=== PATIENT | female | born 1955 | race Caucasian/White ===

== ENCOUNTER 2020-09-18 07:02 | Day surgery (SDC) | payer BC, OTHER ==
[~2020-09-18 07:02] MED LIST: Lactated Ringers 1,000 ML IV SCH; Lidocaine 1% 4 ML ONE; Lidocaine 1%/Sod Bicarbonate in NS 8.4% 1 ML Syringe IDERM PRN; Propofol 200 MG/20 ML SDV ONE; Sodium Chloride 0.9% 10 ML Syringe FLUSH PRN
--- NOTE | 2020-09-18 07:06 | PCM.PREANE ---
Preanesthetic Assessment - Anesthesia/Transfusion/Family Hx Anesthesia History: Prior Anesthesia Without Reaction Family History of Anesthesia Reaction: No Transfusion History: No Prior Transfusion(s) Intubation History: Unknown - Review of Systems General: No Symptoms Pulmonary: No Symptoms Cardiovascular: No Symptoms Gastrointestinal: No Symptoms Neurological: No Symptoms Other: Reports: None - Physical Assessment NPO Status Date: 09/18/20 NPO Status Time: 04:00 ASA Class: 1 Mental Status: Alert & Oriented x3 Airway Class: Mallampati = 2 Dentition: Reports: Normal Dentition ROM/Head Extension: Full Lungs: Clear to Auscultation, Normal Respiratory Effort Cardiovascular: Regular Rate, Regular Rhythm - Allergies Allergies/Adverse Reactions: Allergies Allergy/AdvReac Type Severity Reaction Status Date / Time No Known Allergies Allergy Verified 09/17/20 13:25 - Acknowledgements Anesthesia Type Planned: MAC Pt an Appropriate Candidate for the Planned Anesthesia: Yes Alternatives and Risks of Anesthesia Discussed w Pt/Guardian: Yes Pt/Guardian Understands and Agrees with Anesthesia Plan: Yes PreAnesthesia Questionnaire HEENT History: Reports: None Cardiovascular History: Reports: High Cholesterol Respiratory History: Reports: None Gastrointestinal History: Reports: Colon Polyp Genitourinary History: Reports: Other (See Below) Other Genitourinary History: VAGINAL ATROPHY, 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 Musculoskeletal History: Reports: Other (See Below) Other Musculoskeletal History: LEG CRAMPS Neurological History: Reports: None Psychiatric History: Reports: None Endocrine/Metabolic History: Reports: Osteopenia, Vitamin D Deficiency Hematologic History: Reports: None Immunologic History: Reports: None Oncologic (Cancer) History: Reports: None Dermatologic History: Reports: Other (See Below) Other Dermatologic History: SKIN CYSTS, TINEA CORPOSIS - Past Surgical History Head Surgeries/Procedures: Reports: None HEENT Surgical History: Reports: None Cardiovascular Surgical History: Reports: None Respiratory Surgical History: Reports: None GI Surgical History: Reports: Colonoscopy, Hernia, Inguinal Female Surgical History: Reports: Section, Hysterectomy Male Surgical History: Reports: None Endocrine Surgical History: Reports: None Neurological Surgical History: Reports: None Musculoskeletal Surgical History: Reports: Arthroscopic Knee Oncologic Surgical History: Reports: None Dermatological Surgical History: Reports: None - SUBSTANCE USE Tobacco Use Status *Q: Never Tobacco User Recreational Drug Use History: No - HOME MEDS Home Medications: Home Meds Multivitamin [Multi Vitamin Daily] 1 tab PO DAILY 02/26/14 [History] Calcium Carbonate [Calcium] 600 mg PO DAILY 09/17/20 [History] Cholecalciferol (Vitamin D3) [Vitamin D3] 1,000 unit PO DAILY 09/17/20 [History] Fish Oil/[place]-3 Fatty Acids [Fish Oil 1,000 MG] 1 gm PO DAILY 09/17/20 [History] Multivitamin 1 tab PO DAILY 09/17/20 [History] Naproxen Sodium [Aleve] 220 mg PO BID PRN 09/17/20 [History] estradioL [Estrace 0.01% Vaginal Crm] 1 dose VAG ASDIRECTED 09/17/20 [History] - CURRENT (IN HOUSE) MEDS Current Meds: Current Medications Lactated Ringer's (Ringers, Lactated) 1,000 mls @ 125 mls/hr IV ASDIRECTED PHOEBE Lidocaine/Sodium Bicarbonate (Lidocaine 1%/Sod Bicarbonate In Ns 8.4% 1 Ml Syringe) 0.25 ml IDERM ONETIME PRN PRN Reason: Prior to IV Start Sodium Chloride (Sodium Chloride 0.9% 10 Ml Syringe) 10 ml FLUSH ASDIRECTED PRN PRN Reason: Keep Vein Open Discontinued Medications Lidocaine HCl (Xylocaine-Mpf 1%) Confirm Administered Dose 4 mls @ as directed .ROUTE .STK-MED ONE Stop: 09/18/20 06:56 Propofol (Propofol 200 Mg/20 Ml Sdv) Confirm Administered Dose 200 mg .ROUTE .STK-MED ONE Stop: 09/18/20 06:56
[2020-09-18] MEDS ORDERED: Propofol 200 MG/20 ML SDV ONE ×2 (08:04→08:17)
--- NOTE | 2020-09-18 08:43 | PCM48HPAN ---
Post Anesthesia Note - EVALUATION WITHIN 48HRS OF ANESTHETIC Vital Signs in Normal Range: Yes Patient Participated in Evaluation: Yes Respiratory Function Stable: Yes Airway Patent: Yes Cardiovascular Function Stable: Yes Hydration Status Stable: Yes Pain Control Satisfactory: Yes Nausea and Vomiting Control Satisfactory: Yes Mental Status Recovered: Yes Vital Signs: Last Vital Signs Temp 36.3 C 09/18/20 07:15 Pulse 87 09/18/20 07:15 Resp 16 09/18/20 07:15 BP 129/68 09/18/20 07:15 Pulse Ox 96 09/18/20 07:15
--- NOTE | 2020-09-18 08:48 | PCM.PRNOTE ---
- Free Text/Narrative Note: Date: 09/18/2020 Procedure: screening colonoscopy Indication: single polyp removed on screening 6 years ago Endoscopist: Jamie Rai MD Findings: Good prep. Cecum reached. Single subcentimeter polyp identified and removed at hepatic flexure. Minor diverticular disease of sigmoid. Detailed Report: The patient was taken to the endoscopy suite and placed in left lateral decubitus position. Timeout was performed and monitored anesthesia care was initiated. Visual inspection of the anus revealed no abnormality. Digital rectal exam was unremarkable. The colonoscope was inserted and advanced all the way to the cecum. The colon was very floppy and redundant. The appendiceal orifice was visualized. Prep was good. The scope was slowly withdrawn and mucosal surfaces carefully inspected. A subcentimeter polyp was identified at the hepatic flexure. This was removed with hot snare polypectomy technique. No other polyps were identified. There were a few scattered diverticula noted in the sigmoid colon. On retroflexion, and no pathology was appreciated within the rectum. Air was suctioned from the distal colon and rectum prior to withdrawal of the scope. The patient tolerated the procedure well.
== END 2020-09-18 10:00 | disposition home or self-care (01) ==
LOC: JD.SDS 07:02
PROVIDERS: ATTEND Surgery
DX: Z12.11 Encounter for screening for malignant neoplasm of colon (principal); D12.3 Benign neoplasm of transverse colon; K57.30 Diverticulosis of large intestine without perforation or abscess without bleeding; E11.9 Type 2 diabetes mellitus without complications; E55.9 Vitamin D deficiency, unspecified; Z79.899 Other long term (current) drug therapy; Z98.890 Other specified postprocedural states
CPT/HCPCS: 45385; J2704; J7120; 00812

== ENCOUNTER 2021-03-24 07:09 | Day surgery (SDC) | payer BC, OTHER ==
--- NOTE | 2021-03-23 09:23 | PCM.PREANE ---
Preanesthetic Assessment - Procedure Proposed Procedure: Anterior and Posterior Repair with Perineoplasty with possible mid-urethral sling, possible removal of skin tag left buttock. - Anesthesia/Transfusion/Family Hx Anesthesia History: Prior Anesthesia Without Reaction Family History of Anesthesia Reaction: No Transfusion History: No Prior Transfusion(s) Intubation History: Unknown - Review of Systems Cardiovascular: No Symptoms (Elevated cholesterol) Other: Reports: None (family historyof blood clotting disorder) - Physical Assessment NPO Status Date: 03/23/21 Vital Signs: HR: Sat: Temp: B/P: Resp: Height: 1.6 m ASA Class: 2 Mental Status: Alert & Oriented x3 - Lab Values: All labs reviewed and noted and within acceptable ranges to proceed with s cheduled procedure. - Imaging/EKG Impressions: EKG: - Allergies Allergies/Adverse Reactions: Allergies Allergy/AdvReac Type Severity Reaction Status Date / Time No Known Allergies Allergy Verified 09/18/20 07:21 - Anesthesia Plan Pre-Op Medication Ordered: None - Acknowledgements Anesthesia Type Planned: General Anesthesia Pt an Appropriate Candidate for the Planned Anesthesia: Yes Alternatives and Risks of Anesthesia Discussed w Pt/Guardian: Yes Pt/Guardian Understands and Agrees with Anesthesia Plan: Yes PreAnesthesia Questionnaire HEENT History: Reports: None Cardiovascular History: Reports: High Cholesterol Respiratory History: Reports: None Gastrointestinal History: Reports: Colon Polyp Genitourinary History: Reports: Other (See Below) Other Genitourinary History: VAGINAL ATROPHY, 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 Musculoskeletal History: Reports: Other (See Below) Other Musculoskeletal History: LEG CRAMPS Neurological History: Reports: None Psychiatric History: Reports: None Endocrine/Metabolic History: Reports: Osteopenia, Vitamin D Deficiency Hematologic History: Reports: None Immunologic History: Reports: None Oncologic (Cancer) History: Reports: None Dermatologic History: Reports: Other (See Below) Other Dermatologic History: SKIN CYSTS, TINEA CORPOSIS - Past Surgical History Head Surgeries/Procedures: Reports: None HEENT Surgical History: Reports: None Cardiovascular Surgical History: Reports: None Respiratory Surgical History: Reports: None GI Surgical History: Reports: Colonoscopy, Hernia, Inguinal Female Surgical History: Reports: Section, Hysterectomy Male Surgical History: Reports: None Endocrine Surgical History: Reports: None Neurological Surgical History: Reports: None Musculoskeletal Surgical History: Reports: Arthroscopic Knee Oncologic Surgical History: Reports: None Dermatological Surgical History: Reports: None - HOME MEDS Home Medications: Home Meds Multivitamin [Multi Vitamin Daily] 1 tab PO DAILY 02/26/14 [History] Calcium Carbonate [Calcium] 600 mg PO DAILY 09/17/20 [History] Cholecalciferol (Vitamin D3) [Vitamin D3] 1,000 unit PO DAILY 09/17/20 [History] Fish Oil/[place]-3 Fatty Acids [Fish Oil 1,000 MG] 1 gm PO DAILY 09/17/20 [History] Multivitamin 1 tab PO DAILY 09/17/20 [History] Naproxen Sodium [Aleve] 220 mg PO BID PRN 09/17/20 [History] estradioL [Estrace 0.01% Vaginal Crm] 1 dose VAG ASDIRECTED 09/17/20 [History] - CURRENT (IN HOUSE) MEDS Current Meds: Current Medications Lactated Ringer's (Ringers, Lactated) 1,000 mls @ 125 mls/hr IV ASDIRECTED PHOEBE Stop: 03/24/21 23:00 Lidocaine/Sodium Bicarbonate (Lidocaine 1%/Sod Bicarbonate In Ns 8.4% 1 Ml Syringe) 0.25 ml IDERM ONETIME PRN PRN Reason: Prior to IV Start Stop: 03/24/21 23:00 Sodium Chloride (Sodium Chloride 0.9% 10 Ml Syringe) 10 ml FLUSH ASDIRECTED PRN PRN Reason: Keep Vein Open Stop: 03/24/21 23:00
--- NOTE | 2021-03-23 14:46 | PCM.PREANE ---
Preanesthetic Assessment - Procedure Proposed Procedure: Anterior and Posterior Repair with Perineoplasty with possible mid-urethral sling, possible removal of skin tag on left buttock. - Anesthesia/Transfusion/Family Hx Anesthesia History: Prior Anesthesia Without Reaction Family History of Anesthesia Reaction: No Transfusion History: No Prior Transfusion(s) Intubation History: Unknown - Review of Systems General: No Symptoms Pulmonary: No Symptoms (ETOH: occasionally) Cardiovascular: No Symptoms (Elevated cholesterol) Gastrointestinal: No Symptoms Neurological: No Symptoms Other: Reports: None (Family history of blood clotting disorder) - Physical Assessment NPO Status Date: 03/23/21 NPO Status Time: 23:45 Vital Signs: HR: 101 Sat: 96% Temp: 98.7 B/P: 142/80 Resp: 16 Height: 1.6 m Weight: 75 kg ASA Class: 2 Mental Status: Alert & Oriented x3 Airway Class: Mallampati = 2 Dentition: Reports: Normal Dentition, Caries Thyro-Mental Finger Breadths: 3 Mouth Opening Finger Breadths: 3 ROM/Head Extension: Full Lungs: Clear to Auscultation, Normal Respiratory Effort Cardiovascular: Regular Rate, Regular Rhythm, No Murmurs - Lab Values: All labs reviewed and noted and within acceptable ranges to proceed with scheduled procedure. - Imaging/EKG Impressions: EKG: SR rate= 90, Left Atrial Enlargement, probable old inferior infarct. - Allergies Allergies/Adverse Reactions: Allergies Allergy/AdvReac Type Severity Reaction Status Date / Time No Known Allergies Allergy Verified 09/18/20 07:21 - Anesthesia Plan Pre-Op Medication Ordered: None - Acknowledgements Anesthesia Type Planned: General Anesthesia Pt an Appropriate Candidate for the Planned Anesthesia: Yes Alternatives and Risks of Anesthesia Discussed w Pt/Guardian: Yes Pt/Guardian Understands and Agrees with Anesthesia Plan: Yes PreAnesthesia Questionnaire HEENT History: Reports: None Cardiovascular History: Reports: High Cholesterol Respiratory History: Reports: None Gastrointestinal History: Reports: Colon Polyp Genitourinary History: Reports: Other (See Below) Other Genitourinary History: VAGINAL ATROPHY, 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 Musculoskeletal History: Reports: Other (See Below) Other Musculoskeletal History: LEG CRAMPS Neurological History: Reports: None Psychiatric History: Reports: None Endocrine/Metabolic History: Reports: Osteopenia, Vitamin D Deficiency Hematologic History: Reports: None Immunologic History: Reports: None Oncologic (Cancer) History: Reports: None Dermatologic History: Reports: Other (See Below) Other Dermatologic History: SKIN CYSTS, TINEA CORPOSIS - Past Surgical History Head Surgeries/Procedures: Reports: None HEENT Surgical History: Reports: None Cardiovascular Surgical History: Reports: None Respiratory Surgical History: Reports: None GI Surgical History: Reports: Colonoscopy, Hernia, Inguinal Female Surgical History: Reports: Section, Hysterectomy Male Surgical History: Reports: None Endocrine Surgical History: Reports: None Neurological Surgical History: Reports: None Musculoskeletal Surgical History: Reports: Arthroscopic Knee Oncologic Surgical History: Reports: None Dermatological Surgical History: Reports: None - HOME MEDS Home Medications: Home Meds Multivitamin [Multi Vitamin Daily] 1 tab PO DAILY 02/26/14 [History] Calcium Carbonate [Calcium] 600 mg PO DAILY 09/17/20 [History] Cholecalciferol (Vitamin D3) [Vitamin D3] 1,000 unit PO DAILY 09/17/20 [History] Fish Oil/[place]-3 Fatty Acids [Fish Oil 1,000 MG] 1 gm PO DAILY 09/17/20 [History] Multivitamin 1 tab PO DAILY 09/17/20 [History] Naproxen Sodium [Aleve] 220 mg PO BID PRN 09/17/20 [History] estradioL [Estrace 0.01% Vaginal Crm] 1 dose VAG ASDIRECTED 09/17/20 [History] - CURRENT (IN HOUSE) MEDS Current Meds: Current Medications Lactated Ringer's (Ringers, Lactated) 1,000 mls @ 125 mls/hr IV ASDIRECTED PHOEBE Stop: 03/24/21 23:00 Lidocaine/Sodium Bicarbonate (Lidocaine 1%/Sod Bicarbonate In Ns 8.4% 1 Ml Syringe) 0.25 ml IDERM ONETIME PRN PRN Reason: Prior to IV Start Stop: 03/24/21 23:00 Sodium Chloride (Sodium Chloride 0.9% 10 Ml Syringe) 10 ml FLUSH ASDIRECTED PRN PRN Reason: Keep Vein Open Stop: 03/24/21 23:00
[~2021-03-24 07:09] MED LIST changes: -Lactated Ringers 1,000 ML IV SCH; -Lidocaine 1% 4 ML ONE; -Propofol 200 MG/20 ML SDV ONE
[2021-03-24] MEDS ORDERED: Lactated Ringers 1,000 ML ONE (07:29)
[2021-03-24] MEDS ORDERED: ceFAZolin 1 GM Vial ONE (07:29)
[2021-03-24] MEDS ORDERED: Ondansetron 4 MG/2 ML SDV ONE (07:29)
[2021-03-24] MEDS ORDERED: Rocuronium 50 MG/5 ML Vial ONE (07:29)
[2021-03-24] MEDS ORDERED: Ketorolac 30 MG/ML SDV ONE (07:29)
[2021-03-24] MEDS ORDERED: Midazolam 1 MG/ML 2 ML SDV ONE (07:29)
[2021-03-24] MEDS ORDERED: fentaNYL 250 MCG/5 ML SDV ONE (07:30)
[2021-03-24] MEDS ORDERED: Propofol 200 MG/20 ML SDV ONE (07:30)
[2021-03-24] MEDS ORDERED: Lidocaine 1% with EPINEPHrine 1:100,000 20 ML MDV ONE (07:35)
[2021-03-24] MEDS ORDERED: Sodium Chloride 0.9% 50 ML SDV ONE (07:36)
[2021-03-24] MEDS: Lactated Ringers 1,000 ML IV SCH ×2 (07:55→10:25)
[2021-03-24] MEDS ORDERED: Dexamethasone 4 MG/ML 5 ML MDV ONE (08:14)
[2021-03-24] MEDS ORDERED: Ondansetron 4 MG/2 ML SDV IVPUSH PRN ×2 (08:38→09:47)
[2021-03-24] MEDS ORDERED: fentaNYL 100 MCG/2 ML SDV IVPUSH PRN (08:38)
[2021-03-24] MEDS ORDERED: HYDROmorphone 0.5 MG/0.5 ML Syringe IVPUSH PRN (08:38)
[2021-03-24] MEDS ORDERED: diphenhydrAMINE 50 MG/ML SDV IVPUSH PRN (08:38)
[2021-03-24] MEDS ORDERED: ePHEDrine 50 MG/ML SDV IVPUSH PRN (08:38)
[2021-03-24] MEDS ORDERED: HYDROmorphone 0.5 MG/0.5 ML Syringe ONE (09:33)
[2021-03-24] MEDS ORDERED: Acetaminophen/oxyCODONE 325-5 MG Tab PO PRN ×2 (09:47→13:12)
--- NOTE | 2021-03-24 10:15 | PCM.OPNOTE ---
- General Post-Op/Procedure Note Date of Surgery/Procedure: 03/24/21 Operative Procedure(s): Anterior and posterior vaginal repair with perineoplasty, subfascial mid urethral sling Findings: Grade 3 cystocele, grade 2 rectocele, grade 1-2 descensus. Clinical findings on preoperative evaluation consistent with stress urinary incontinence. Pre Op Diagnosis: Grade 3 cystocele, grade 2 rectocele, grade 1-2 descensus, stress urinary incontinence. Post-Op Diagnosis: Same Anesthesia Technique: General ET Tube Other Anesthesia Type: Lidocaine quarter percent with [id number] mL total Primary Surgeon: Trev Fermin Secondary Surgeon: Misha Escalante Anesthesia Provider: Maricruz Elise Reason Heel Seat Trimmer Was Necessary: Retraction, assistance, patient safety, quality of care. Pathology: Perianal skin tag Fluid Replacement, Intraop: 900 Output, Urine Amount: 325 EBL in mLs: 20 Drain/Tube Comments:: Red rubber catheterused to empty the bladder and then at the end of procedure to refill the bladder Complications: None Condition: Good Free Text/Narrative:: Intake & Output 03/23/21 03/24/21 03/24/21 22:59 06:59 14:59 Output Total 325 Balance -325 Surgery duration: 66 minutes Procedure: The patient is taken to the operating room and placed in a supine position on the operating table. She received 2 g of Ancef preoperatively for infection prophylaxis. She had sequential compression stockings in place for DVT prophylaxis. Patient was administered general endotracheal anesthesia. She was placed in a dorsal lithotomy position and prepped and draped in the usual fashion. Anterior vaginal repair was performed. Patient had emptied her bladder macaroni maker to the OR. Weighted speculum was placed in the vagina and the uppermost portion of the cystocele was identified. Two Allis clamps was placed at that uppermost point at a position approximately 1-1/2 cm lateral to the midline A second Allis clamp was placed approximately 2 cm from the urethral meatus. Care was taken to allow for enough space to place the subfascial mid urethral sling. The areas were infiltrated with lidocaine quarter percent with epinephrine. Approximately 10 mL was used. The 2 lateral Allis clamps were retracted and an epithelial incision was made between the 2 clamps. A midline incision was then made with a Metzenbaum scissors. The overlying epithelium was then dissected off of the underlying vesicovaginal fascia. This all to lateral which when approximately midline was felt to be adequate to reduce the cystocele. When this was done approximately 7 trapezoidal shaped sutures of 0 Monocryl were then placed reapproximating the lateral supportive tissue midline and reducing the rectocele. At this point the excess epithelium bilaterally was removed and the epithelium was closed in a running fashion with a running segment to decrease likelihood of shortening of the vagina. Her bladder was again drained with a red rubber catheter. 325 cc of normal urine were removed. The epithelium overlying the urethra was grasped approximately 1 cm from the urethral meatus and approximately 2 cm cephalad from there with Allis clamps. The area of the skin overlying the medial aspect of the obturator foramen on each side just posterior to the origin the abductor longus muscle was marked with a marking pen. These 2 areas and the sub-fascial layer of the vaginal were then infiltrated with lidocaine quarter percent with epinephrine total of approximately 10 mL was used. incisions made in the epithelium overlying the urethra and 2 small stab wounds 3 mm in length were made in the 2 areas of the panty line of the patient. The subfascial planes were adequately dissected bilaterally to allow placement of the mesh. The helical adapter was then placed through the obturator on patient's left side, then brought out through the vaginal subfascial plane. Mesh was attached to it and then was pulled back through the obturator foramen. Same was done on the right side. Mesh was then snugged up to a Dilator 15 mm in diameter which was was used as a spacer to place the mesh in a tension-free position. At this point the mesh was cut off at the skin surface and the dilator was removed. The midline epithelium was closed with a short running suture of 3- 0 Monocryl. Skin incisions were closed at the end of the case with Dermabond skin glue. These bladder was filled with approximately 200 cc of normal saline to facilitate voiding and therefore discharged home. Rectocele was then performed. The uppermost portion of the rectocele was identified and was grasped midline with an Allis clamp. The introital area was grasped at approximately the 4:00 and 8:00 positions at the junction of the vaginal and vulvar epithelium. The area of epithelium was then infiltrated with lidocaine quarter percent with epinephrine. A narciso-shaped piece of epithelium was removed from the posterior introital and perineal area. The vaginal epithelium was then undermined superiorly to the top of the rectocele. Was then incised midline. With sharp and blunt dissection the epithelium was then d issected off of the underlying vesicovaginal fascia. At this point approximately 7 sutures of 0 Monocryl were placed to reapproximate the lateral supportive tissue midline and reduce the rectocele. The excess epithelium was then excised and the epithelium overlying the rectocele repair was then reapproximated with a running suture of 3-0 Monocryl. Perineoplasty was then performed with approximately 4 V-shaped stitches of 0 Monocryl in placed to reapproximate the lateral tissue midline, rebuild the perineum about 1 cm and the vagina approximately 1 cm. The epithelium of the introitus and perineal body was then reapproximated using 3-0 Monocryl in an episiotomy repair fashion. At this time sponge, instrument and needle counts were correct. The patient was returned to supine position and was discharged from the operating room in good condition.
--- NOTE | 2021-03-24 10:17 | PCM.POSTAN ---
POST ANESTHESIA ASSESSMENT - MENTAL STATUS Mental Status: Alert - VITAL SIGNS Vital Signs: Last Vital Signs Temp 97.7 03/24/21 09:55 Pulse 89 03/24/21 09:55 Resp 14 03/24/21 09:55 BP 129/66 03/24/21 09:55 Pulse Ox 96% 03/24/21 09:55 - RESPIRATORY Respiratory Status: Respiratory Rate WNL, Airway Patent, O2 Saturation Stable, Supplemental Oxygen - CARDIOVASCULAR CV Status: Pulse Rate WNL, Blood Pressure Stable - GASTROINTESTINAL GI Status: No Symptoms - POST OP HYDRATION Hydration Status: Adequate & Stable
--- NOTE | 2021-03-24 10:28 | PCM48HPAN ---
Post Anesthesia Note - EVALUATION WITHIN 48HRS OF ANESTHETIC Vital Signs in Normal Range: Yes Patient Participated in Evaluation: Yes Respiratory Function Stable: Yes Airway Patent: Yes Cardiovascular Function Stable: Yes Hydration Status Stable: Yes Pain Control Satisfactory: Yes Nausea and Vomiting Control Satisfactory: Yes Mental Status Recovered: Yes Vital Signs: Last Vital Signs Temp 36.5 C 03/24/21 09:55 Pulse 101 H 03/24/21 07:20 Resp 15 03/24/21 10:10 BP 112/71 03/24/21 10:10 Pulse Ox 97 03/24/21 10:10
[2021-03-24] MEDS ORDERED: Midazolam 1 MG/ML 2 ML SDV IVPUSH PRN (10:29)
[2021-03-24] MEDS ORDERED: Ketorolac 30 MG/ML SDV IVPUSH SCH (14:00)
[2021-03-24] MEDS ORDERED: Ibuprofen 600 MG Tab PO PRN (20:00)
--- NOTE | 2021-03-27 07:09 | PCM.EKG ---
#1 Interpretation EKG Date: 03/24/21 Time: 07:40 Rhythm: NSR Rate (Beats/Min): 90 [place]: Normal P-Wave: Enlarged (Lt atrial hypertrophy.) QRS: Other (Qwaves leads2,3 and AVF< 25% of the QRS complex and are considered incosequential. Due to patients age consider old inferior wall FL>) ST-T: Normal QT: Normal EKG Interpretation Comments: Abnormal ECG
== END 2021-03-24 14:10 | disposition home or self-care (01) ==
LOC: JD.SDS 07:09
PROVIDERS: ATTEND Obstetrics & Gynecology
DX: N81.2 Incomplete uterovaginal prolapse (principal); N39.3 Stress incontinence (female) (male); E11.9 Type 2 diabetes mellitus without complications; E78.5 Hyperlipidemia, unspecified; M85.80 Other specified disorders of bone density and structure, unspecified site; B35.4 Tinea corporis; E55.9 Vitamin D deficiency, unspecified; E78.00 Pure hypercholesterolemia, unspecified; Z79.899 Other long term (current) drug therapy; Z98.890 Other specified postprocedural states
CPT/HCPCS: 36415; 57260; 57288; 81003; 85025; A9270; C1771; J0690; J1100; J1170; J1200; J1885; J2250; J2370; J2405; J2704; J2710; J3010; J7120; 00942